=== PATIENT | male | born 1970 | race Caucasian/White ===

== ENCOUNTER 2021-01-23 09:22 | Inpatient (IN) | payer OTHER ==
[~2021-01-23] VITALS: Ht 188 cm; Wt 88.5 kg
[~2021-01-23 09:22] MED LIST: ANORO ELLIPTA1 EACH INH; AUGMENTIN 875-1 EACH PO; ELIQUIS2.5 MG PO; FERROUS SULFAT325 M2 PO; IBUPROFEN800 MG PO; LEVAQUIN500 MG PO; MEDROL4 MG PO; NORCO 5-325 TA1 EACH PO; PERCOCET 10-321 EACH PO; PREDNISONE20 MG PO; PRINIVIL20 MG PO; PROAIR HFA8.5 GM INH; VITAMIN D21250 MCG PO; VOLTAREN EC 7575 MG PO; ZITHROMAX500 MG PO
[2021-01-23] MEDS ORDERED: WELLBUTRIN SR150 MG PO (10:04)
[2021-01-23 10:17] LABS: HEMOGLOBIN 11.1 gm/dl (14.0-17.5); RED BLOOD COUNT 3.9 M/UL (4.20-5.50); WHITE BLOOD COUNT 15.9 K/UL (4.5-11.0)
[2021-01-23 10:39] LABS: BUN/CREATININE RATIO 11 (0-10)
[2021-01-23] MEDS ORDERED: PROAIR HFA8.5 GM INH (11:24)
[2021-01-23] MEDS ORDERED: VOLTAREN EC 7575 MG PO (11:27)
[2021-01-23] MEDS ORDERED: ADVIL200 MG PO (11:29)
[2021-01-23] MEDS ORDERED: CLARITIN10 MG PO (11:31)
[2021-01-23 20:39] LABS: BORDETELLA PARAPERTUSSIS Not Detected (Not Detectd); BORDETELLA PERTUSSIS Not Detected (Not Detectd); CHLAMYDIA PNEUMONIAE Not Detected (Not Detectd); CORONAVIRUS HKU1 Not Detected (Not Detectd); CORONAVIRUS NL63 Not Detected (Not Detectd); CORONAVIRUS OC43 Not Detected (Not Detectd); CORONOAVIRUS 229E Not Detected (Not Detectd); HUMAN METAPNEUMOVIRUS Not Detected (Not Detectd); HUMAN RHINOVIRUS/ENTEROVIRUS Not Detected (Not Detectd); INFLUENZA A Not Detected (Not Detectd); INFLUENZA B Not Detected (Not Detectd); MYCOPLASMA PNEUMONIAE Not Detected (Not Detectd); PARAINFLUENZA VIRUS 1 Not Detected (Not Detectd); PARAINFLUENZA VIRUS 2 Not Detected (Not Detectd); PARAINFLUENZA VIRUS 3 Not Detected (Not Detectd); PARAINFLUENZA VIRUS 4 Not Detected (Not Detectd); RESPIRATORY SYNCYTIAL VIRUS Not Detected (Not Detectd)
[2021-01-23 22:11] LABS: SARS-CoV-2 NOT DETECTED (Not Detectd)
[2021-01-24 04:25] LABS: HEMOGLOBIN 9.6 gm/dl (14.0-17.5); WHITE BLOOD COUNT 14.7 K/UL (4.5-11.0)
[2021-01-24 04:27] LABS: RED BLOOD COUNT 3.39 M/UL (4.20-5.50)
[2021-01-24 04:45] LABS: BUN/CREATININE RATIO 12 (0-10)
[2021-01-25 05:49] LABS: HEMOGLOBIN 9.9 gm/dl (14.0-17.5); RED BLOOD COUNT 3.52 M/UL (4.20-5.50); WHITE BLOOD COUNT 11.4 K/UL (4.5-11.0)
[2021-01-25 06:13] LABS: BUN/CREATININE RATIO 8 (0-10)
[2021-01-26 05:29] LABS: HEMOGLOBIN 10.1 gm/dl (14.0-17.5); RED BLOOD COUNT 3.62 M/UL (4.20-5.50); WHITE BLOOD COUNT 9.1 K/UL (4.5-11.0)
[2021-01-26 05:48] LABS: BUN/CREATININE RATIO 9 (0-10)
[2021-01-26] MEDS ORDERED: CEFUROXIME500 MG PO ×2 (08:58→09:00)
[2021-01-26] MEDS ORDERED: AZITHROMYCIN500 MG PO (08:58)
[2021-01-26] MEDS ORDERED: NICOTINE PATCH1 EAC5 TD (13:13)
[2021-01-26] MEDS ORDERED: VENTOLIN HFA 66.7 GM INH (13:16)
[2021-01-26] MEDS ORDERED: SPIRIVA RESPIMAT4 GM INH (13:29)
--- NOTE | 2021-01-26 13:38 | NUR ---
INSTRUCTED PATIENT ON NEW INHALERS AND COMPLETION OF ANTIBIOTICS. KEEP FOLOW UP APPOINTMENT WITH MD SCHEDULED. VERBALIZED UNDERSTANDING. ATUL HERNANDEZ R.N.
[2021-01-26 16:11] LABS: ORGANISM ID Not indicated. (.); SPECIMEN SOURCE Urine (.); STREPTOCOCCUS PNEUMONIAE AG Negative (Negative)
[2021-03-12] MEDS ORDERED: VOLTAREN EC 7575 MG PO (13:18)
== END 2021-01-26 16:30 | disposition home or self-care (01) | DRG 193 ==
LOC: ER1 09:22 → M/S 10:54 → CDU 10:54 → M/S 15:31
PROVIDERS: Emergency Medicine; Physician Assistant Medical; ADMIT Internal Medicine
PROC: B24BZZ4 Ultrasonography of Heart with Aorta, Transesophageal (ICD-10-PCS; principal; 2021-01-25)
DX: J18.9 Pneumonia, unspecified organism (principal); J96.01 Acute respiratory failure with hypoxia; J44.0 Chronic obstructive pulmonary disease with (acute) lower respiratory infection; D63.8 Anemia in other chronic diseases classified elsewhere; Z20.822 Contact with and (suspected) exposure to COVID-19; E87.6 Hypokalemia; I10 Essential (primary) hypertension; I07.1 Rheumatic tricuspid insufficiency; F32.9 Major depressive disorder, single episode, unspecified; G47.33 Obstructive sleep apnea (adult) (pediatric); I27.20 Pulmonary hypertension, unspecified; F17.210 Nicotine dependence, cigarettes, uncomplicated; Z96.642 Presence of left artificial hip joint; Z59.0 Homelessness; Z87.01 Personal history of pneumonia (recurrent); Z93.0 Tracheostomy status; Z81.1 Family history of alcohol abuse and dependence
CPT/HCPCS: ECHO; 36415; 36600; 71045; 71046; 80048; 80053; 81001; 82550; 82553; 82803; 83605; 83735; 83874; 83880; 84484; 85025; 85027; 87040; 87070; 87205; 87278; 87633; 87899; 93005; 93306; 94640; 94760; 99285; J0456; J0696; J1650; J1940; J7030; U0002

== ENCOUNTER 2021-03-04 19:29 | Emergency (ER) | payer OTHER ==
[~2021-03-04 19:29] MED LIST changes: +ADVIL200 MG PO; +AZITHROMYCIN500 MG PO; +CEFUROXIME500 MG PO; +CLARITIN10 MG PO; +NICOTINE PATCH1 EAC5 TD; +SPIRIVA RESPIMAT4 GM INH; +VENTOLIN HFA 66.7 GM INH; +WELLBUTRIN SR150 MG PO
[2021-03-04 22:09] LABS: HEMOGLOBIN 13.4 gm/dl (14.0-17.5); RED BLOOD COUNT 4.76 M/UL (4.20-5.50)
[2021-03-04 22:30] LABS: BUN/CREATININE RATIO 21 (0-10)
[2021-03-05] MEDS ORDERED: ASPIRIN CHEWABL81 MG PO (03:43)
[2021-03-05] MEDS ORDERED: PROTONIX 40 MG40 M1 PO (03:43)
[2021-03-05] MEDS ORDERED: MYLANTA MAXIMU355 ML PO (03:43)
== END 2021-03-05 01:21 | disposition home or self-care (01) ==
LOC: ER1 19:29
PROVIDERS: Physician Assistant
DX: R10.9 Unspecified abdominal pain (principal); R07.9 Chest pain, unspecified; J44.9 Chronic obstructive pulmonary disease, unspecified; I10 Essential (primary) hypertension; K21.9 Gastro-esophageal reflux disease without esophagitis; F17.200 Nicotine dependence, unspecified, uncomplicated; Z79.899 Other long term (current) drug therapy
CPT/HCPCS: 71045; 80053; 81001; 82550; 82553; 83690; 83874; 84484; 85025; 93005; 99284

== ENCOUNTER 2021-03-12 07:57 | Inpatient (IN) | payer OTHER ==
[~2021-03-12] VITALS: Ht 185.4 cm; Wt 86.2 kg
[~2021-03-12 07:57] MED LIST changes: +ASPIRIN CHEWABL81 MG PO; +MYLANTA MAXIMU355 ML PO; +PROTONIX 40 MG40 M1 PO
[2021-03-12 08:35] LABS: HEMOGLOBIN 12.9 gm/dl (14.0-17.5); RED BLOOD COUNT 4.57 M/UL (4.20-5.50); WHITE BLOOD COUNT 16.7 K/UL (4.5-11.0)
[2021-03-12 08:59] LABS: BUN/CREATININE RATIO 39 (0-10)
[2021-03-12] MEDS ORDERED: SYMBICORT 80-41 INHA INH (13:28)
[2021-03-12] MEDS ORDERED: VOLTAREN EC 7575 MG PO (13:43)
[2021-03-12] MEDS ORDERED: MYLANTA MAXIMU355 ML PO (13:45)
[2021-03-13 07:53] LABS: HEMOGLOBIN 11.2 gm/dl (14.0-17.5); RED BLOOD COUNT 4.03 M/UL (4.20-5.50); WHITE BLOOD COUNT 12.6 K/UL (4.5-11.0)
[2021-03-14 07:46] LABS: HEMOGLOBIN 12.1 gm/dl (14.0-17.5)
[2021-03-14 07:48] LABS: RED BLOOD COUNT 4.55 M/UL (4.20-5.50); WHITE BLOOD COUNT 18.6 K/UL (4.5-11.0)
[2021-03-14 07:58] LABS: BUN/CREATININE RATIO 18 (0-10)
[2021-03-15 07:02] LABS: RED BLOOD COUNT 4.31 M/UL (4.20-5.50); WHITE BLOOD COUNT 16.3 K/UL (4.5-11.0)
[2021-03-15 07:20] LABS: BUN/CREATININE RATIO 11 (0-10)
[2021-03-15] MEDS ORDERED: AUGMENTIN 875-1 EACH PO (16:01)
== END 2021-03-15 18:11 | disposition home or self-care (01) | DRG 388 ==
LOC: ER1 07:57 → CDU 12:20 → MED SURG 4 17:24
PROVIDERS: Emergency Medicine; Physician Assistant; ADMIT Internal Medicine
DX: K56.609 Unspecified intestinal obstruction, unspecified as to partial versus complete obstruction (principal); J69.0 Pneumonitis due to inhalation of food and vomit; Z20.822 Contact with and (suspected) exposure to COVID-19; E87.1 Hypo-osmolality and hyponatremia; E87.2 Acidosis; N17.9 Acute kidney failure, unspecified; J44.1 Chronic obstructive pulmonary disease with (acute) exacerbation; K44.9 Diaphragmatic hernia without obstruction or gangrene; N20.0 Calculus of kidney; I10 Essential (primary) hypertension; J44.9 Chronic obstructive pulmonary disease, unspecified; F17.210 Nicotine dependence, cigarettes, uncomplicated; D64.9 Anemia, unspecified; E86.0 Dehydration; Z79.82 Long term (current) use of aspirin
CPT/HCPCS: 36415; 43752; 71045; 71046; 76705; 80048; 80053; 81001; 82550; 82553; 83605; 83690; 84484; 85025; 85027; 87040; 93005; 94640; 94664; 94760; 99285; J0696; J2270; J2405; J2543; J7030; Q9967; U0002

== ENCOUNTER 2021-03-20 17:41 | Inpatient (IN) | payer OTHER ==
[~2021-03-20] VITALS: Ht 185.4 cm; Wt 86.2 kg
[~2021-03-20 17:41] MED LIST changes: +SYMBICORT 80-41 INHA INH
[2021-03-20 22:38] LABS: HEMOGLOBIN 10.6 gm/dl (14.0-17.5); RED BLOOD COUNT 3.99 M/UL (4.20-5.50); WHITE BLOOD COUNT 22.4 K/UL (4.5-11.0)
[2021-03-20 23:02] LABS: BUN/CREATININE RATIO 15 (0-10)
[2021-03-21 02:54] LABS: WHITE BLOOD COUNT 17.2 K/UL (4.5-11.0)
[2021-03-21 03:08] LABS: RED BLOOD COUNT 3.39 M/UL (4.20-5.50)
[2021-03-21] MEDS ORDERED: LISINOPRIL20 MG PO (13:17)
[2021-03-21] MEDS ORDERED: ASPIRIN EC81 MG PO (13:18)
[2021-03-22 06:19] LABS: RED BLOOD COUNT 3.36 M/UL (4.20-5.50); WHITE BLOOD COUNT 16.1 K/UL (4.5-11.0)
[2021-03-22 06:52] LABS: BUN/CREATININE RATIO 15 (0-10)
[2021-03-23 07:57] LABS: HEMOGLOBIN 8.6 gm/dl (14.0-17.5); RED BLOOD COUNT 3.26 M/UL (4.20-5.50)
[2021-03-23 08:37] LABS: BUN/CREATININE RATIO 11 (0-10)
[2021-03-24 06:34] LABS: HEMOGLOBIN 8.5 gm/dl (14.0-17.5); RED BLOOD COUNT 3.27 M/UL (4.20-5.50); WHITE BLOOD COUNT 13.6 K/UL (4.5-11.0)
[2021-03-24 06:46] LABS: BUN/CREATININE RATIO 8 (0-10)
--- NOTE | 2021-03-25 02:36 | NUR ---
PT HAS NOT HAD MUCH URINE OUTPUT THIS SHIFT NOR PREVIOUS SHIFT ACCORDING TO I&O RECORD. BLADDER SCAN ONLY SHOWED 97 ML. PT STATES THAT HE IS NOT DRINKING VERY MUCH. PT HAD NO TENDERNESS TO PELVIC REGION AND NO DISTENTION DETECTED. WCTM
[2021-03-25 06:48] LABS: HEMOGLOBIN 8.6 gm/dl (14.0-17.5); RED BLOOD COUNT 3.24 M/UL (4.20-5.50)
[2021-03-25 06:57] LABS: BUN/CREATININE RATIO 9 (0-10)
[2021-03-26 07:42] LABS: HEMOGLOBIN 9.1 gm/dl (14.0-17.5); RED BLOOD COUNT 3.36 M/UL (4.20-5.50); WHITE BLOOD COUNT 20.6 K/UL (4.5-11.0)
[2021-03-26 07:47] LABS: BUN/CREATININE RATIO 10 (0-10)
[2021-03-27 07:03] LABS: HEMOGLOBIN 9.3 gm/dl (14.0-17.5); RED BLOOD COUNT 3.45 M/UL (4.20-5.50)
[2021-03-27 07:35] LABS: BUN/CREATININE RATIO 11 (0-10)
[2021-03-28 07:04] LABS: HEMOGLOBIN 9.1 gm/dl (14.0-17.5); RED BLOOD COUNT 3.46 M/UL (4.20-5.50)
[2021-03-28 07:07] LABS: WHITE BLOOD COUNT 9.4 K/UL (4.5-11.0)
[2021-03-28 07:20] LABS: BUN/CREATININE RATIO 11 (0-10)
[2021-03-29 06:24] LABS: HEMOGLOBIN 9.5 gm/dl (14.0-17.5); RED BLOOD COUNT 3.6 M/UL (4.20-5.50); WHITE BLOOD COUNT 9.6 K/UL (4.5-11.0)
[2021-03-29 06:45] LABS: BUN/CREATININE RATIO 8 (0-10)
[2021-03-30 06:21] LABS: HEMOGLOBIN 10.3 gm/dl (14.0-17.5); RED BLOOD COUNT 3.87 M/UL (4.20-5.50)
[2021-03-30 06:38] LABS: WHITE BLOOD COUNT 16.7 K/UL (4.5-11.0)
[2021-03-30 06:44] LABS: BUN/CREATININE RATIO 10 (0-10)
[2021-03-31 07:11] LABS: HEMOGLOBIN 8.7 gm/dl (14.0-17.5); RED BLOOD COUNT 3.3 M/UL (4.20-5.50); WHITE BLOOD COUNT 17.7 K/UL (4.5-11.0)
[2021-03-31 07:28] LABS: BUN/CREATININE RATIO 15 (0-10)
--- NOTE | 2021-03-31 17:00 | NUR ---
during dr. franklin visit was instructed if patient have present bowel sounds may give popsicles.
--- NOTE | 2021-04-01 12:18 | NUR ---
informed dr. franklin of patient tolerating clear liquid diet, no reported n/v. dr. franklin acknowledged
[2021-04-02 06:43] LABS: HEMOGLOBIN 7.5 gm/dl (14.0-17.5)
[2021-04-02 06:51] LABS: RED BLOOD COUNT 2.73 M/UL (4.20-5.50)
[2021-04-02 07:06] LABS: BUN/CREATININE RATIO 7 (0-10)
[2021-04-03 08:17] LABS: HEMOGLOBIN 8.5 gm/dl (14.0-17.5); RED BLOOD COUNT 3.14 M/UL (4.20-5.50); WHITE BLOOD COUNT 6.2 K/UL (4.5-11.0)
[2021-04-03 08:44] LABS: BUN/CREATININE RATIO 7 (0-10)
[2021-04-04 07:27] LABS: BUN/CREATININE RATIO 6 (0-10)
[2021-04-04] MEDS ORDERED: LOPRESSOR 50 MG50 MG PO (11:54)
[2021-04-04] MEDS ORDERED: PERCOCET 5/325 T1 EA PO (13:13)
== END 2021-04-04 14:12 | disposition home or self-care (01) | DRG 329 ==
LOC: ER1 17:41 → M/S 23:41 → CDU 23:41 → M/S 03-21 09:35
PROVIDERS: Internal Medicine; Physician Assistant; ADMIT Internal Medicine
PROC: 0DH67UZ Insertion of Feeding Device into Stomach, Via Natural or Artificial Opening (ICD-10-PCS; 2021-03-20)
PROC: 0DN84ZZ Release Small Intestine, Percutaneous Endoscopic Approach (ICD-10-PCS; 2021-03-21)
PROC: 0D9670Z Drainage of Stomach with Drainage Device, Via Natural or Artificial Opening (ICD-10-PCS; 2021-03-27)
PROC: 0DN80ZZ Release Small Intestine, Open Approach (ICD-10-PCS; principal; 2021-03-30)
PROC: 0DB80ZZ Excision of Small Intestine, Open Approach (ICD-10-PCS; principal; 2021-03-30)
PROC: 05HM33Z Insertion of Infusion Device into Right Internal Jugular Vein, Percutaneous Approach (ICD-10-PCS; 2021-03-30)
PROC: B24BZZZ Ultrasonography of Heart with Aorta (ICD-10-PCS; 2021-04-03)
DX: K56.50 Intestinal adhesions [bands], unspecified as to partial versus complete obstruction (principal); J69.0 Pneumonitis due to inhalation of food and vomit; J96.01 Acute respiratory failure with hypoxia; E87.1 Hypo-osmolality and hyponatremia; N17.9 Acute kidney failure, unspecified; Z20.822 Contact with and (suspected) exposure to COVID-19; I47.2 Ventricular tachycardia; D62 Acute posthemorrhagic anemia; J98.11 Atelectasis; I10 Essential (primary) hypertension; J44.9 Chronic obstructive pulmonary disease, unspecified; Z96.642 Presence of left artificial hip joint; G40.909 Epilepsy, unspecified, not intractable, without status epilepticus; I08.1 Rheumatic disorders of both mitral and tricuspid valves; M19.90 Unspecified osteoarthritis, unspecified site; F32.9 Major depressive disorder, single episode, unspecified; F17.210 Nicotine dependence, cigarettes, uncomplicated; E16.2 Hypoglycemia, unspecified; E87.6 Hypokalemia; Z90.81 Acquired absence of spleen; Z98.890 Other specified postprocedural states; Z82.49 Family history of ischemic heart disease and other diseases of the circulatory system; Z79.82 Long term (current) use of aspirin; Z79.899 Other long term (current) drug therapy
CPT/HCPCS: ECHO; 36415; 43752; 71045; 72193; 74018; 74019; 74160; 80048; 80053; 82550; 82553; 82962; 83605; 83690; 83735; 83874; 83880; 84100; 84132; 84484; 85025; 85027; 87040; 93005; 93306; 94640; 94664; 94760; 96374; 96375; 99285; C1751; J1100; J1200; J2001; J2185; J2250; J2270; J2370; J2405; J2543; J2550; J2704; J2710; J2920; J3010; J7030; J7040; J7120; Q9963; Q9967; U0002

== ENCOUNTER 2022-01-10 14:05 | Inpatient (IN) | payer OTHER ==
[~2022-01-10] VITALS: Ht 185.4 cm; Wt 88.5 kg
[~2022-01-10 14:05] MED LIST changes: +ASPIRIN EC81 MG PO; +LISINOPRIL20 MG PO; +LOPRESSOR 50 MG50 MG PO; +PERCOCET 5/325 T1 EA PO
[2022-01-10 15:05] LABS: HEMOGLOBIN 10.8 gm/dl (14.0-17.5); RED BLOOD COUNT 4.1 M/UL (4.20-5.50); WHITE BLOOD COUNT 23.4 K/UL (4.5-11.0)
[2022-01-10 16:11] LABS: BUN/CREATININE RATIO 17 (0-10)
[2022-01-10] MEDS ORDERED: BUPRENORPHIN-N1 EACH SL (22:41)
[2022-01-10] MEDS ORDERED: LISINOPRIL20 MG PO (22:42)
[2022-01-10] MEDS ORDERED: NICOTINE PATCH1 EAC2 TD (22:42)
[2022-01-11 04:10] LABS: HEMOGLOBIN 10.5 gm/dl (14.0-17.5); RED BLOOD COUNT 4.06 M/UL (4.20-5.50); WHITE BLOOD COUNT 17.8 K/UL (4.5-11.0)
[2022-01-11 04:54] LABS: BUN/CREATININE RATIO 16 (0-10)
[2022-01-12 06:27] LABS: HEMOGLOBIN 10.3 gm/dl (14.0-17.5); RED BLOOD COUNT 3.97 M/UL (4.20-5.50)
[2022-01-12 06:30] LABS: WHITE BLOOD COUNT 26.3 K/UL (4.5-11.0)
[2022-01-12 13:18] LABS: BUN/CREATININE RATIO 18 (0-10)
[2022-01-12] MEDS ORDERED: SYMBICORT 16010.2 GM INH (15:10)
[2022-01-12] MEDS ORDERED: CEFUROXIME500 MG PO (15:10)
[2022-01-12] MEDS ORDERED: MEDROL4 MG PO (15:10)
[2022-01-12] MEDS ORDERED: LOPRESSOR 50 MG50 MG PO (15:10)
== END 2022-01-12 18:00 | disposition home or self-care (01) | DRG 193 ==
LOC: ER1 14:05 → CDU 19:00 → MED SURG 4 19:00
PROVIDERS: Internal Medicine; Physician Assistant Medical; ADMIT Internal Medicine
DX: J18.9 Pneumonia, unspecified organism (principal); J96.01 Acute respiratory failure with hypoxia; Z20.822 Contact with and (suspected) exposure to COVID-19; J96.02 Acute respiratory failure with hypercapnia; J44.1 Chronic obstructive pulmonary disease with (acute) exacerbation; J44.0 Chronic obstructive pulmonary disease with (acute) lower respiratory infection; D64.9 Anemia, unspecified; I10 Essential (primary) hypertension; Z98.890 Other specified postprocedural states; Z87.891 Personal history of nicotine dependence; Z82.49 Family history of ischemic heart disease and other diseases of the circulatory system
CPT/HCPCS: 0240U; 36415; 36600; 71045; 80048; 80053; 81001; 82550; 82553; 82803; 83605; 83735; 83880; 84100; 84484; 85025; 85027; 85379; 86140; 87040; 87070; 87077; 87081; 87086; 87205; 87278; 87880; 93005; 94640; 94664; 94760; 96372; 96374; 99285; J0696; J1650; J2920; J2930; Q9967

== ENCOUNTER → 2022-01-25 | Outpatient (CLI) | payer OTHER ==
[~2022-01-25] MED LIST changes: +BUPRENORPHIN-N1 EACH SL; +NICOTINE PATCH1 EAC2 TD; +SYMBICORT 16010.2 GM INH
[2022-01-25 15:23] LABS: HEMOGLOBIN 10.6 gm/dl (14.0-17.5); RED BLOOD COUNT 3.95 M/UL (4.20-5.50); WHITE BLOOD COUNT 10.6 K/UL (4.5-11.0)
[2022-01-25 15:47] LABS: BUN/CREATININE RATIO 21 (0-10)
[2022-01-26 08:14] LABS: VITAMIN D, 25-HYDROXY 36.4 ng/mL (30.0-100.0)
== END ==
LOC: RAD 14:36
PROVIDERS: Nurse Practitioner Family
DX: M54.50 Low back pain, unspecified (principal); M25.552 Pain in left hip; I10 Essential (primary) hypertension; E78.5 Hyperlipidemia, unspecified; D50.9 Iron deficiency anemia, unspecified; F41.9 Anxiety disorder, unspecified; R35.1 Nocturia; E55.9 Vitamin D deficiency, unspecified; M47.816 Spondylosis without myelopathy or radiculopathy, lumbar region; M43.9 Deforming dorsopathy, unspecified
CPT/HCPCS: 36415; 72100; 73502; 80053; 80061; 81001; 82607; 82728; 82746; 83540; 83550; 84153; 84439; 84443; 84466; 85025

== ENCOUNTER → 2022-02-02 | Outpatient (CLI) | payer OTHER ==
[2022-02-02 16:19] LABS: HEMOGLOBIN 11.2 gm/dl (14.0-17.5); RED BLOOD COUNT 4.19 M/UL (4.20-5.50); WHITE BLOOD COUNT 7.9 K/UL (4.5-11.0)
[2022-02-02 16:45] LABS: BUN/CREATININE RATIO 16 (0-10)
[2022-02-04 08:13] LABS: VITAMIN D, 25-HYDROXY 36.2 ng/mL (30.0-100.0)
== END ==
LOC: LAB 14:56
PROVIDERS: Nurse Practitioner Family
DX: D50.9 Iron deficiency anemia, unspecified (principal); I10 Essential (primary) hypertension; E78.5 Hyperlipidemia, unspecified; F41.9 Anxiety disorder, unspecified; R35.1 Nocturia; E55.9 Vitamin D deficiency, unspecified
CPT/HCPCS: 36415; 80053; 80061; 81001; 82607; 82728; 82746; 83540; 83550; 84153; 84439; 84443; 84466; 85025